=== PATIENT | male | born 1955 | race Caucasian/White ===

== ENCOUNTER 2017-09-19 05:51 | Day surgery (SDC) | payer BC ==
[2017-09-18 10:50] VITALS: BMI 28.4
--- NOTE | 2017-09-19 13:45 | OP ---
DATE OF PROCEDURE: 09/19/2017 PROCEDURE: Colonoscopy. PHYSICIAN: Remy Hinton M.D. MEDICATION: Given by Anesthesiology Department. PREPROCEDURE DIAGNOSIS: History of colon adenomatous polyp, last examined 5 years ago. POSTPROCEDURE DIAGNOSES: 1. Sigmoid diverticulosis. 2. Otherwise normal colon exam. PROCEDURE IN DETAIL: A written consent was obtained prior to procedure. After adequate sedation, re ctal exam performed was normal. Endoscope was advanced to the cecum. The quality of the bowel prep was good. The cecum, ascending colon, hepatic flexure, transverse colon, descending colon all appear ed normal. Few diverticula were noted in the sigmoid colon. The rectosigmoid junction and the recta l vault appeared normal including retroflexion. The patient tolerated the procedure well. ASSESSMENT: 1. Mild sigmoid diverticulosis. 2. Otherwise normal colon exam. RECOMMENDATION: Repeat colon surveillance in 5 years.
[2017-09-19] MEDS ORDERED: Lidocaine 1% PF 5 ML VIAL ONE (14:54)
[2017-09-19] MEDS ORDERED: PROPOFOL 200 MG/20 ML VIAL ONE (14:54)
== END 2017-09-19 08:35 | disposition home or self-care (01) ==
LOC: SDC 05:51
PROVIDERS: ATTEND Internal Medicine Gastroenterology
PROC: 0DJD8ZZ Inspection of Lower Intestinal Tract, Via Natural or Artificial Opening Endoscopic (ICD-10-PCS; principal; 2017-09-19)
DX: Z12.11 Encounter for screening for malignant neoplasm of colon (principal); K57.30 Diverticulosis of large intestine without perforation or abscess without bleeding; Z86.010 Personal history of colon polyps; Z79.52 Long term (current) use of systemic steroids; Z79.899 Other long term (current) drug therapy; Z88.0 Allergy status to penicillin
CPT/HCPCS: J2001; J2704

== ENCOUNTER 2018-05-27 12:05 | Outpatient (CLI) | payer BC ==
--- NOTE | 2018-05-27 15:02 | CT ---
CT THORAX WITHOUT CONTRAST: Date: 05/27/18 INDICATION: History of sarcoidosis. COMPARISON: Prior CT thorax dated 12/18/16. FINDINGS: Since the comparison examination, there has been interval performance of a partial pneumonectomy of t he right upper lobe. There is persistent perihilar, peribronchovascular soft tissue density and nodul arity present, but to a lesser extent in the right upper lobe. The extent of the lung involvement inv olving the left upper lobe and lingula also appears mildly improved from the comparison examination. There are persistent areas of suspected subsegmental volume loss involving both upper lobes, particul julio around the fissures. The adenopathy of the mediastinum appears relatively stable. Evaluation of hilar adenopathy is limited without IV contrast. Visualized upper abdomen reveals no acute abnormalit y. There is a stable left renal cyst. IMPRESSION: 1. Some improvement in the parenchymal changes involving the perihilar regions bilaterally, particul julio within both upper lobes, as well as the lingula. There are persistent areas of reticulonodularit y, peribronchial vascular soft tissue density, as well as areas of subsegmental volume loss involving both lungs. 2. Interval partial pneumonectomy of right upper lobe. 3. Persistent adenopathy of the mediastinum and suspected hilar regions, consistent with the patient 's history of sarcoidosis. POS: [facility]
== END 2018-05-27 12:06 | disposition home or self-care (01) ==
LOC: CP 12:05
PROVIDERS: ATTEND Internal Medicine
DX: D86.9 Sarcoidosis, unspecified (principal); G47.33 Obstructive sleep apnea (adult) (pediatric); R59.0 Localized enlarged lymph nodes; Z98.890 Other specified postprocedural states
CPT/HCPCS: 71250; 94010; 94729

== ENCOUNTER 2019-09-10 11:40 | Outpatient (CLI) | payer BC ==
--- NOTE | 2019-09-10 12:08 | RAD ---
Radiograph right foot 3 views: 09/10/2019 HISTORY: 64-year-old male with "pressure ulcer right heel/midfoot for 7 weeks not healing" The office of referring provider, SYLVESTER Boles was called. The office was closed. A voiceTvinci d etailed message was left by Dr. Pruett, describing findings, at 12:05 PM 09/10/2019. There was no way to call or speak to the referring provider. COMPARISON: None FINDINGS: There is mature exuberant callus around an oblique fracture of the mid diaphysis of the second metata rsal, with 25% bone width lateral displacement of distal fragment. Fracture lucency is indistinct. There is lateral and superior subluxation of the third proximal phalanx relative to the head of the t hird metatarsal. There are extensive erosions of the third metatarsal head. There is periosteal elevation of the diaphysis and proximal metaphysis of the third proximal phalanx. Diffuse sclerosis o f the third metatarsal diaphysis. Moderately increased attenuation of a broad region at the plantar aspect of the foot centered around the third MTP joint. Within the is broad region of moderately increased attenuation, there is very irregularly-shaped calcific density material in the soft tissues which may or may not represent packi ng material. Other than plantar and posterior calcaneal enthesophytes, the hindfoot and midfoot are unremarkable. IMPRESSION: 1. 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 2. Mature exuberant callus around late subacute or early chronic healing displaced fracture of third metatarsal midshaft.
== END 2019-09-10 11:41 | disposition home or self-care (01) ==
LOC: BICRAD 11:40
PROVIDERS: ATTEND Nurse Practitioner Family
DX: L97.419 Non-pressure chronic ulcer of right heel and midfoot with unspecified severity (principal); M19.071 Primary osteoarthritis, right ankle and foot; M86.9 Osteomyelitis, unspecified; L03.115 Cellulitis of right lower limb
CPT/HCPCS: 36415; 85027; 85652; 86140

== ENCOUNTER 2020-01-11 11:20 | Outpatient (CLI) | payer BC ==
--- NOTE | 2020-01-11 12:19 | RAD ---
2 VIEW CHEST: Date: 01/11/2020 HISTORY: Dyspnea. Comparison made to chest film of 01/23/2016. FINDINGS: There are increased interstitial markings bilaterally which appear stable from the 01/23/2016 exam. R adiopaque suture overlies the right lung. Pacemaker leads are noted and appear adequately positioned. Borderline cardiomegaly is stable. The vascular markings are within normal range and stable. No effu yasmany. IMPRESSION: Diffuse increased interstitial markings bilaterally appear stable from 2016, indicating chronic lung process. Chronic lung changes were described on CT chest of 05/27/2018. POS: [facility]
== END 2020-01-11 11:21 | disposition home or self-care (01) ==
LOC: BICRAD 11:20
PROVIDERS: ATTEND Internal Medicine Critical Care Medicine
DX: R06.00 Dyspnea, unspecified (principal); J98.4 Other disorders of lung
CPT/HCPCS: 71046

== ENCOUNTER 2020-07-11 11:37 | Outpatient (CLI) | payer BC | END 2020-07-11 11:38 | disposition home or self-care (01) | LOC: BICRAD 11:37 | PROVIDERS: ATTEND Internal Medicine Critical Care Medicine | DX: R06.00 Dyspnea, unspecified (principal) | CPT/HCPCS: 71046 ==

== ENCOUNTER 2021-01-09 09:47 | Outpatient (CLI) | payer BC | END 2021-01-09 09:48 | disposition home or self-care (01) | LOC: BICRAD 09:47 | PROVIDERS: ATTEND Internal Medicine Critical Care Medicine | DX: R06.00 Dyspnea, unspecified (principal) | CPT/HCPCS: 71046 ==

== ENCOUNTER 2021-08-30 10:08 | Outpatient (CLI) | payer BC | END 2021-08-30 10:09 | disposition home or self-care (01) | LOC: RAD 10:08 | PROVIDERS: ATTEND Internal Medicine Critical Care Medicine | DX: R06.00 Dyspnea, unspecified (principal) | CPT/HCPCS: 71046 ==

== ENCOUNTER 2021-11-28 08:15 | Outpatient (CLI) | payer BC | END 2021-11-28 08:16 | disposition home or self-care (01) | LOC: BICCT 08:15 | PROVIDERS: ATTEND Internal Medicine Critical Care Medicine | DX: D86.9 Sarcoidosis, unspecified (principal); R59.0 Localized enlarged lymph nodes | CPT/HCPCS: 71250 ==

== ENCOUNTER 2022-12-02 09:07 | Outpatient (CLI) | payer BC | END 2022-12-02 09:08 | disposition home or self-care (01) | LOC: BICCT 09:07 | PROVIDERS: ATTEND Internal Medicine Critical Care Medicine | DX: D86.9 Sarcoidosis, unspecified (principal) | CPT/HCPCS: 71250 ==

== ENCOUNTER 2022-12-26 06:56 | Day surgery (SDC) | payer BC ==
[2022-12-25 09:30] VITALS: BMI 27.8
[2022-12-26] MEDS ORDERED: PROPOFOL 200 MG/20 ML VIAL ONE (08:40)
[2022-12-26] MEDS ORDERED: Lidocaine 1% PF 5 ML VIAL ONE (08:40)
== END 2022-12-26 10:00 | disposition home or self-care (01) ==
LOC: SDC 06:56
PROVIDERS: ATTEND Internal Medicine Gastroenterology
PROC: 0DBN8ZX Excision of Sigmoid Colon, Via Natural or Artificial Opening Endoscopic, Diagnostic (ICD-10-PCS; principal; 2022-12-26)
DX: D12.5 Benign neoplasm of sigmoid colon (principal); K57.30 Diverticulosis of large intestine without perforation or abscess without bleeding; D86.9 Sarcoidosis, unspecified; G47.33 Obstructive sleep apnea (adult) (pediatric); Z98.1 Arthrodesis status; Z88.0 Allergy status to penicillin; Z86.010 Personal history of colon polyps; Z95.0 Presence of cardiac pacemaker; Z79.899 Other long term (current) drug therapy
CPT/HCPCS: 88305; J2704

== ENCOUNTER 2023-11-27 13:53 | Outpatient (CLI) | payer BC, MEDICARE | END 2023-11-27 13:54 | disposition home or self-care (01) | LOC: RAD 13:53 | PROVIDERS: ATTEND Internal Medicine Critical Care Medicine | DX: R06.00 Dyspnea, unspecified (principal); I51.7 Cardiomegaly; J98.4 Other disorders of lung | CPT/HCPCS: 71046 ==

== ENCOUNTER 2025-01-22 20:17 | Inpatient (IN) | payer MEDICARE ==
[2025-01-22] MEDS ORDERED: Magnesium 2 GM/50 ML BAG (IN WATER) ONE (20:30)
[2025-01-22 20:37] LABS: #Basophils 0.04 10x3/uL (0.0-0.2); #Eosinophils 0.21 10x3/uL (0.0-0.7); #Monocytes 0.80 10x3/uL (0.11-0.59); #Neutrophils 3.88 10x3/uL (1.40-6.50); %Basophils 0.7 % (0.0-1.0); %Eosinophils 3.6 % (0.0-10.0); %Lymphocytes 16.1 % (21.0-51.0); %Monocytes 13.6 % (0.0-10.0); %Neutrophils 65.7 % (42.0-75.0); Hematocrit 43.0 % (42.0-52.0); Hemoglobin 14.0 g/dL (14.0-18.0); Mean Corpuscular Hemoglobin 31.6 pg (27.0-31.0); Mean Corpuscular Volume 97.1 fL (78.0-98.0); Platelet Count 152 10x3/uL (130-400); Red Blood Cell (RBC) Count 4.43 mill/uL (4.70-6.10); White Blood Cell (WBC) Count 5.90 10x3/uL (4.8-10.8)
[2025-01-22 20:54] LABS: ALT (SGPT) 20 U/L (Less than 45); AST (SGOT) 28 U/L (11-34); Albumin 3.5 g/dL (3.1-4.5); Alkaline Phosphatase 43 U/L (40-110); Anion Gap 16 mmol/L (10-20); BUN (Urea Nitrogen) 24 mg/dL (8.4-25.7); Bilirubin, Total 1.0 mg/dL (0.3-1.2); Calc. Creatinine Clearance 0 mL/min (70-130); Calcium 8.5 mg/dL (7.8-10.44); Carbon Dioxide 19 mmol/L (23-31); Chloride 114 mmol/L (98-107); Globulin 2.8 g/dL (2.4-3.5); Glucose 105 mg/dL (80-115); Magnesium 2.1 mg/dL (1.6-2.6); Potassium 4.3 mmol/L (3.5-5.1); Sodium 145 mmol/L (136-145)
[2025-01-22] MEDS ORDERED: Acetaminophen 325 MG TAB PO PRN (22:36)
[2025-01-22] MEDS ORDERED: Ondansetron PF 4 MG/2 ML Vial IVP PRN (22:36)
[2025-01-22 23:46] VITALS: BMI 28.5
[2025-01-23 04:19] LABS: #Basophils 0.04 10x3/uL (0.0-0.2); #Eosinophils 0.09 10x3/uL (0.0-0.7); #Monocytes 1.06 10x3/uL (0.11-0.59); #Neutrophils 6.33 10x3/uL (1.40-6.50); %Basophils 0.5 % (0.0-1.0); %Eosinophils 1.1 % (0.0-10.0); %Lymphocytes 11.3 % (21.0-51.0); %Monocytes 12.5 % (0.0-10.0); %Neutrophils 74.2 % (42.0-75.0); Hematocrit 44.3 % (42.0-52.0); Hemoglobin 14.4 g/dL (14.0-18.0); Mean Corpuscular Hemoglobin 31.2 pg (27.0-31.0); Mean Corpuscular Volume 96.1 fL (78.0-98.0); Platelet Count 159 10x3/uL (130-400); Red Blood Cell (RBC) Count 4.61 mill/uL (4.70-6.10); White Blood Cell (WBC) Count 8.51 10x3/uL (4.8-10.8)
[2025-01-23 04:45] LABS: ALT (SGPT) 20 U/L (Less than 45); AST (SGOT) 29 U/L (11-34); Albumin 3.6 g/dL (3.1-4.5); Alkaline Phosphatase 47 U/L (40-110); Anion Gap 11 mmol/L (10-20); BUN (Urea Nitrogen) 26 mg/dL (8.4-25.7); Bilirubin, Total 1.1 mg/dL (0.3-1.2); Calc. Creatinine Clearance 83 mL/min (70-130); Calcium 9.2 mg/dL (7.8-10.44); Carbon Dioxide 21 mmol/L (23-31); Chloride 111 mmol/L (98-107); Globulin 2.8 g/dL (2.4-3.5); Glucose 105 mg/dL (80-115); Potassium 4.8 mmol/L (3.5-5.1); Sodium 138 mmol/L (136-145)
[2025-01-23] MEDS ORDERED: Enoxaparin 40 MG (0.4 mL) SYRINGE SC SCH (09:00)
[2025-01-23] MEDS: Sacubitril 24MG/Valsartan 26 MG TAB PO SCH (09:07)
[2025-01-23] MEDS: Apixaban 5 MG TAB PO SCH (09:07)
[2025-01-23] MEDS: Gabapentin 300 MG CAP PO SCH (09:07)
[2025-01-23] MEDS: Famotidine 20 MG TAB PO SCH (09:07)
[2025-01-23] MEDS: Dapagliflozin Propanediol 10 MG TAB PO SCH (09:07)
[2025-01-23] MEDS: Famotidine/PF 20 mg/2ml Vial SLOW IVP SCH (09:08)
[2025-01-23 11:57] LABS: ALT (SGPT) 21 U/L (Less than 45); AST (SGOT) 25 U/L (11-34); Albumin 3.8 g/dL (3.1-4.5); Alkaline Phosphatase 51 U/L (40-110); Bilirubin, Direct 0.5 mg/dL (0.1-0.3); Bilirubin, Total 1.6 mg/dL (0.3-1.2); Magnesium 2.4 mg/dL (1.6-2.6); Potassium 5.0 mmol/L (3.5-5.1)
[2025-01-23] MEDS: Carvedilol 25 MG TAB PO SCH (20:27)
[2025-01-24 04:52] LABS: Anion Gap 14 mmol/L (10-20); BUN (Urea Nitrogen) 21 mg/dL (8.4-25.7); Calc. Creatinine Clearance 101 mL/min (70-130); Calcium 9.4 mg/dL (7.8-10.44); Carbon Dioxide 20 mmol/L (23-31); Chloride 107 mmol/L (98-107); Glucose 88 mg/dL (80-115); Potassium 3.8 mmol/L (3.5-5.1); Sodium 137 mmol/L (136-145)
[2025-01-24] MEDS: Cyanocobalamin (Vitamin B-12) 1,000 MCG TAB PO SCH (09:14)
[2025-01-24] MEDS: Multivit, Therapeutic 1 TAB PO SCH (09:14)
[2025-01-24] MEDS: Amiodarone 200 MG TAB PO SCH (15:35)
[2025-01-25] MEDS: Amiodarone 200 MG TAB PO SCH (20:38)
[2025-01-27 04:41] LABS: Anion Gap 14 mmol/L (10-20); BUN (Urea Nitrogen) 29 mg/dL (8.4-25.7); Calc. Creatinine Clearance 71 mL/min (70-130); Calcium 9.8 mg/dL (7.8-10.44); Carbon Dioxide 24 mmol/L (23-31); Chloride 106 mmol/L (98-107); Glucose 93 mg/dL (80-115); Magnesium 2.3 mg/dL (1.6-2.6); Potassium 4.8 mmol/L (3.5-5.1); Sodium 139 mmol/L (136-145)
[2025-01-27] MEDS: Albumin 25% 25 GM (100 mL) BOT IVPB SCH (13:17)
[2025-01-28 04:39] LABS: Anion Gap 13 mmol/L (10-20); BUN (Urea Nitrogen) 27 mg/dL (8.4-25.7); Calc. Creatinine Clearance 85 mL/min (70-130); Calcium 9.7 mg/dL (7.8-10.44); Carbon Dioxide 22 mmol/L (23-31); Chloride 108 mmol/L (98-107); Glucose 84 mg/dL (80-115); Magnesium 2.3 mg/dL (1.6-2.6); Potassium 4.4 mmol/L (3.5-5.1); Sodium 139 mmol/L (136-145)
[2025-01-28 12:11] VITALS: BP 116/70; TEMP 97.3
[2025-01-28] MEDS ORDERED: Sacubitril 49 MG/Valsartan 51 MG TABLET PO SCH (21:00)
[2025-01-29] MEDS ORDERED: Dapagliflozin Propanediol 10 MG TAB PO SCH (09:00)
[2025-01-29] MEDS ORDERED: Amiodarone 200 MG TAB PO SCH (09:00)
== END 2025-01-28 14:40 | disposition home or self-care (01) | DRG 309 ==
LOC: ERS 20:17 → PCU 22:39
PROVIDERS: ADMIT Internal Medicine; ATTEND Internal Medicine
PROC: 30233J1 Transfusion of Nonautologous Serum Albumin into Peripheral Vein, Percutaneous Approach (ICD-10-PCS; principal; 2025-01-22)
DX: I47.10 Supraventricular tachycardia, unspecified (principal); I42.8 Other cardiomyopathies; I50.22 Chronic systolic (congestive) heart failure; I34.1 Nonrheumatic mitral (valve) prolapse; D86.9 Sarcoidosis, unspecified; I49.3 Ventricular premature depolarization; G62.9 Polyneuropathy, unspecified; I11.0 Hypertensive heart disease with heart failure; Z95.810 Presence of automatic (implantable) cardiac defibrillator; Z88.0 Allergy status to penicillin; Z79.899 Other long term (current) drug therapy; Z79.01 Long term (current) use of anticoagulants; Z98.890 Other specified postprocedural states
CPT/HCPCS: 36415; 70450; 71045; 80048; 80053; 83735; 83880; 84436; 84443; 84479; 84484; 85025; 93005; 94640; 94760; 96365; 96375; J0282; J3475; J7030; J7070; J7626; P9047